=== PATIENT | female | born 1950 | race African-American/Black ===

== ENCOUNTER 2019-06-02 10:33 | Observation (INO) | payer MEDICARE ==
[~2019-06-02] VITALS: Ht 170.2 cm; Wt 76.2 kg
--- NOTE | 2019-06-02 11:57 | NUR ---
re draw done
[2019-06-02 12:04] LABS: BASOPHILS % 0.5 % (0.0-1.0); EOSINOPHILS # (AUTO) 0.1 (0.0-0.4); EOSINOPHILS % 1.5 % (0.0-6.0); HEMATOCRIT 31.4 % (34.2-44.1); HEMOGLOBIN 10.5 g/dL (12.0-16.0); LYMPHOCYTES # (AUTO) 1.7 (1.0-3.2); LYMPHOCYTES % 41.8 % (18.0-39.1); MEAN CORPUSCULAR HGB CONC 33.4 g/dL (31-35); MEAN CORPUSCULAR VOLUME 98.7 fL (81-99); MONOCYTES # (AUTO) 0.4 (0.2-0.8); MONOCYTES % 10.1 % (4.4-11.3); NEUTROPHILS # (AUTO) 1.9 (2.1-6.9); NEUTROPHILS % 46.1 % (38.7-80.0); PLATELET COUNT 75 x10e3/uL (140-360); RED BLOOD COUNT 3.18 x10e6/uL (3.6-5.1); RED CELL DISTRIBUTION WIDTH 14.8 % (11.7-14.4)
[2019-06-02 12:23] LABS: ALANINE AMINOTRANSFERASE 20 IU/L (0-55); ALBUMIN 1.4 g/dL (3.5-5.0); ALBUMIN/GLOBULIN RATIO 0.2 (0.8-2.0); ALKALINE PHOSPHATASE 88 IU/L (40-150); ANION GAP 7.1 mmol/L (8-16); BLOOD UREA NITROGEN 14 mg/dL (7-26); BUN/CREATININE RATIO 14 (6-25); CALCIUM 8.2 mg/dL (8.4-10.2); CARBON DIOXIDE 28 mmol/L (22-29); CHLORIDE 105 mmol/L (98-107); CREATININE, SERUM 1.02 mg/dL (0.57-1.11); EST GLOMERULAR FILTRATION RATE > 60 ML/MIN (60-); GLUCOSE 270 mg/dL (74-118); POTASSIUM 3.1 mmol/L (3.5-5.1); SODIUM 137 mmol/L (136-145)
[2019-06-02 12:37] LABS: BILIRUBIN,URINE NEGATIVE (NEGATIVE); CLARITY,URINE SL CLOUDY (CLEAR); COLOR,URINE YELLOW (YELLOW); KETONES,URINE NEGATIVE (NEGATIVE); LEUKOCYTE ESTERASE ,URINE NEGATIVE (NEGATIVE); NITRITE,URINE NEGATIVE (NEGATIVE); PROTEIN,URINE DIPSTICK 3+ (NEGATIVE); URINE UROBILINOGEN 1 mg/dL (0.2 - 1)
[2019-06-02 12:59] LABS: BACTERIA,URINE FEW /HPF; EPITHELIAL CELLS,URINE FEW /LPF; RBC,URINE 0-5 /HPF (0-5); WBC,URINE (MAN) >50 /HPF (0-5)
--- NOTE | 2019-06-02 13:11 | NUR ---
called radiology and spoke with nikita in rad regarding ct scan eta
--- NOTE | 2019-06-02 14:40 | Diagnostic Imaging Report ---
EXAM: CT Abdomen and Pelvis WITHOUT and WITH intravenous contrast - liver mass protocol INDICATION: Abdominal pain, liver mass COMPARISON: Report from CT abdomen and pelvis of 04/08/2017 (images not available for comparison) TECHNIQUE: Abdomen and pelvis were scanned utilizing a multidetector helical scanner from the lung base to the pubic symphysis before and after administration of IV contrast. Coronal and sagittal reformations were obtained. Liver mass protocol was used. Scan was performed prior to contrast administration and during arterial, portal venous and delayed venous phases. IV CONTRAST: 100 mL of Isovue 370 ORAL CONTRAST: Water COMPLICATIONS: None RADIATION DOSE: Total DLP: 1466.5 mGy*cm Dose modulation, iterative reconstruction, and/or weight based adjustment of the mA/kV was utilized to reduce the radiation dose to as low as reasonably achievable. FINDINGS: LOWER THORAX: Bibasilar dependent subsegmental atelectasis. HEPATOBILIARY: Nodular liver surface contour consistent with hepatic cirrhosis. There are numerous masses throughout the right and left liver, all of which demonstrate avid arterial enhancement and venous washout, consistent with multifocal hepatocellular carcinoma. The largest of these masses measure 4.0 x 3.4 cm in segment 5 (series 3 image 1:15) and a conglomeration of masses in segment 5 measuring up to 5.5 cm (series 3 image 118) the largest lesion on the left measures up to 2.0 cm in segment 2 (series 3 image 27). The portal system remains patent. There are prominent portosystemic varices in the upper abdomen, consistent with portal hypertension. No significant intrahepatic biliary ductal dilation. There is cholelithiasis without CT evidence of cholecystitis. SPLEEN: No splenomegaly. PANCREAS: No focal masses or ductal dilatation. ADRENALS: No adrenal nodules. KIDNEYS/URETERS: No hydronephrosis, stones, or solid mass lesions. PELVIC ORGANS/BLADDER: Status post hysterectomy. PERITONEUM / RETROPERITONEUM: Small volume abdominal ascites. No free air. Diffuse mesenteric edema. LYMPH NODES: No lymphadenopathy. VESSELS: Diffuse atherosclerotic calcifications of the nonaneurysmal abdominal aorta and major branches. GI TRACT: Severe sigmoid diverticulosis without CT evidence of diverticulitis. BONES AND SOFT TISSUES: Diffuse anasarca. No acute osseous injury. No suspicious lytic or blastic lesions. IMPRESSION: Hepatic cirrhosis with numerous masses throughout the right greater than left liver demonstrating arterial enhancement and venous washout consistent with multifocal hepatocellular carcinoma. Prominent portosystemic varices and small volume of abdominal ascites consistent with portal hypertension. Diffuse mesenteric edema and diffuse anasarca. Cholelithiasis without CT evidence of cholecystitis. The above findings were discussed with Dr. Abbott on 06/02/2019 2:17 PM, who responded indicating that the communication was understood. Signed by: Srinivas Asher MD on 06/02/2019 2:37 PM
[2019-06-02] MEDS ORDERED: ONDANSETRON HCL INJ 2MG/ML 2ML 2 MG/ML VIAL IV PRN (15:30)
[2019-06-02] MEDS ORDERED: MORPHINE SULFATE 2 MG/ML SYR 1ML IV PRN (15:30)
[2019-06-02] MEDS ORDERED: DEXTROSE 50% SYRINGE 50 ML IV PRN (15:30)
[2019-06-02] MEDS ORDERED: MORPHINE SULFATE INJ 4 MG/ML INJ 1ML IV PRN (15:45)
[2019-06-02] MEDS ORDERED: IOPAMIDOL 370 MG/ML 200 ML INFUS..BTL INJ ONE (15:48)
[2019-06-02] MEDS ORDERED: SODIUM CHLORIDE 0.9% 50ML 50 ML ONE (15:48)
[2019-06-02] MEDS ORDERED: FAMOTIDINE 20 MG/2 ML VIAL IV SCH (17:00)
[2019-06-02 17:56] VITALS: BP 179/81
[2019-06-02 18:06] VITALS: BP 179/81
[2019-06-02 18:11] VITALS: BP 179/81
[2019-06-02] MEDS: POTASSIUM CHLORIDE 20 MEQ TAB CR PO SCH (19:03)
--- NOTE | 2019-06-02 20:16 | NUR ---
CALLED DR. BUTLER AT THIS TIME, BUT WENT STRAIGHT TO [employer]. LEFT A MESSAGED REGARDING BLOOD GLUCOSE AND BP. AWAITING CALL BACK
[2019-06-02 20:30] VITALS: BP 178/97
--- NOTE | 2019-06-02 20:33 | NUR ---
CALLED AGAIN AT THIS TIME. AWAITING CALL BACK
--- NOTE | 2019-06-02 20:43 | NUR ---
SPOKE TO DR. BUTLER AT THIS TIME. REGARDING BLOOD GLUCOSE, BP AND HR. NEW ORDERS RECEIVED. SEE EMAR FOR LIST OF ORDERS. LEVEMIR ORDER SUBSTITUTED WITH LANTUS PER PHARMACY
[2019-06-02] MEDS ORDERED: ENALAPRILAT IV INJ 1.25 MG/ML VIAL IV PRN (21:00)
[2019-06-02] MEDS ORDERED: INSULIN GLARGINE 100 UNITS/ML VIAL SQ ONE (21:15)
[2019-06-02] MEDS ORDERED: METOPROLOL TARTRATE 50 MG TAB PO ONE (21:30)
[2019-06-02] MEDS: INSULIN REGULAR, HUMAN 100 UNIT/1 ML 3ML VIAL SQ SCH (21:40)
[2019-06-02 23:44] VITALS: BP 154/68
--- NOTE | 2019-06-03 02:30 | History and Physical ---
THI IS GI CONSULT, NOT H & P CONSULTING PHYSICIAN: Ruben Peng MD. REASON FOR CONSULT: Multiple liver masses in a cirrhotic liver. HISTORY OF PRESENTING ILLNESS: A 68-year-old Afro-Gu[place]ian female, who is very confused. I cannot get any history from the patient. The patient lives with her in [place]. She was noted to be developing confusion. Therefore, she was brought into emergency room by her . She sees only primary care doctor, what patient tells me is that her primary doctor is Dr. Tompkins. She is not sure if she has a known history of liver cirrhosis. CT scan of the abdomen and pelvis done in the emergency room showed multiple liver masses in a cirrhotic liver, typical arterial enhancement and venous washout is diagnostic of multi focal hepatocellular carcinoma. She was also noted to have a small volume of ascites. GI is being consulted for further evaluation and recommendation. REVIEW OF SYSTEMS: Unobtainable, patient is pleasantly confused. PAST MEDICAL HISTORY: Liver cirrhosis, cause of the liver cirrhosis is not known. PAST SURGICAL HISTORY: Unknown. FAMILY HISTORY: Unknown, not contributory. SOCIAL HISTORY: and lives with her . No smoking, alcohol, or any illicit drug use. HOME MEDICATIONS: None, not listed anything in the chart. INPATIENT MEDICATIONS: Reviewed as per MAR. She is getting dextrose IV fluid as needed, famotidine 20 mg twice daily, morphine 4 mg IV q.4 hours p.r.n., Zofran 4 mg IV q.4 hours p.r.n. ALLERGIES: OXYCODONE. PHYSICAL EXAMINATION: VITAL SIGNS: Temperature 97.1, pulse ranging from 112 to 113, respiration 21 to 18, blood pressure 178/97, oxygen saturation 100% on room air. GENERAL: Confused. HEENT: Oral mucosa is moist. Slightly icteric sclerae. CVS: S1 and S2. Regular. LUNGS: Bilaterally grossly clear. ABDOMEN: Soft. Palpable tenderness in epigastric right upper quadrant without any rebound, rigidity, or guarding, shifting dullness is present. Bowel sounds present. No other masses or hernia. EXTREMITIES: 2+ pitting bilateral leg edema. LABORATORY DATA: Sodium 137, potassium 3.1, chloride 105, bicarb 28, BUN 14, creatinine 1.02, glucose 270. Liver enzymes showed a total bilirubin 1.0, AST 40, ALT 20, alkaline phosphatase 88. WBC 4.07, hemoglobin 10.5, hematocrit 31.4, MCV 98.7, and platelet count 75. Urinalysis showed WBC more than 50 per high-power field. CT of the abdomen and pelvis with and without contrast showed cirrhotic liver, numerous masses throughout the liver, more on the right than the left, demonstrating arterial enhancement and venous washout consistent with multifocal hepatocellular carcinoma. Prominent portosystemic varices and small volume of abdominal ascites consistent with portal hypertension. Diffuse mesenteric edema and diffuse anasarca. Cholelithiasis without CT evidence of cholecystitis. IMPRESSION: 1. Multifocal hepatocellular carcinoma. 2. The patient may be having occult hepatic encephalopathy. 3. Urinary tract infection based upon urinalysis. PLAN: Given multifocal hepatocellular carcinoma, there is no choice and it is quite advanced, therefore her prognosis is very poor. Consider hospice. Oncology consult. She may be a candidate of Nexavar (sorafenib), check urine culture. Treat UTI. Lactulose to ensure one or two bowel movement daily. Low-salt diet. Zackery Martínez MD SA/RIO /[id number] WAYNE
[2019-06-03 04:00] VITALS: BP 149/66
[2019-06-03 05:40] LABS: BASOPHILS % 0.5 % (0.0-1.0); EOSINOPHILS # (AUTO) 0.1 (0.0-0.4); EOSINOPHILS % 1.7 % (0.0-6.0); HEMATOCRIT 27.8 % (34.2-44.1); HEMOGLOBIN 9.1 g/dL (12.0-16.0); LYMPHOCYTES # (AUTO) 1.2 (1.0-3.2); LYMPHOCYTES % 30.3 % (18.0-39.1); MEAN CORPUSCULAR HEMOGLOBIN 32.5 pg (28-32); MEAN CORPUSCULAR HGB CONC 32.7 g/dL (31-35); MEAN CORPUSCULAR VOLUME 99.3 fL (81-99); MONOCYTES # (AUTO) 0.5 (0.2-0.8); MONOCYTES % 13.2 % (4.4-11.3); NEUTROPHILS # (AUTO) 2.2 (2.1-6.9); NEUTROPHILS % 54.1 % (38.7-80.0); PLATELET COUNT 66 x10e3/uL (140-360); RED CELL DISTRIBUTION WIDTH 14.9 % (11.7-14.4)
[2019-06-03 06:10] LABS: ALANINE AMINOTRANSFERASE 17 IU/L (0-55); ALBUMIN 1.1 g/dL (3.5-5.0); ALBUMIN/GLOBULIN RATIO 0.2 (0.8-2.0); ALKALINE PHOSPHATASE 73 IU/L (40-150); ANION GAP 8.3 mmol/L (8-16); BLOOD UREA NITROGEN 17 mg/dL (7-26); BUN/CREATININE RATIO 16 (6-25); CALCIUM 7.9 mg/dL (8.4-10.2); CARBON DIOXIDE 24 mmol/L (22-29); CHLORIDE 109 mmol/L (98-107); CREATININE, SERUM 1.04 mg/dL (0.57-1.11); EST GLOMERULAR FILTRATION RATE > 60 ML/MIN (60-); GLUCOSE 233 mg/dL (74-118); POTASSIUM 3.3 mmol/L (3.5-5.1); SODIUM 138 mmol/L (136-145)
--- NOTE | 2019-06-03 06:22 | NUR ---
Medical Consultation Requesting physician: Dr Martínez Reason for consult: liver masses HPI: 68yoF, with hx cirrhosis, now with worsened abdominal pain. PMH: hepatic cirrhosis, ascites, portal HTN PSHX; unknown allergies; see emr FH/SH; ; meds; see MAR ROS; no f/c/s/N/V/D/FRANCOIS/cp/sob/dizziness v/s revd PE tired appearing atraumatic ns1s2 mod bs soft nd; minimal tenderness of abdomen no e/t skin dry flat affect alert/ SALAZAR labs/meds; revd A/P: 68yoF Hepatic cirrhosis Likely Hepatocellular carcinoma Ascites portal hypertension Cholelithiasis Pancytopenia Hypokalemia HTN PLAN resume home meds pt wants to f/u outpt with GI for further care No sob; currently asymptomatic; abdominal pain resolved Prop: scd Dispo: d/c home; f/u closely with GI; considerations for hospice care. Raul Talamantes MD, PhD.
--- NOTE | 2019-06-03 06:40 | NUR ---
rounded with rn night nurse, patient aware of change and in no distress at this time. call zuñiga within reach and bed in lowest position.
[2019-06-03] MEDS ORDERED: FAMOTIDINE 20 MG TAB PO SCH (07:30)
[2019-06-03 08:00] VITALS: BP 155/64
[2019-06-03] MEDS: INSULIN REGULAR, HUMAN 100 UNIT/1 ML 3ML VIAL SQ SCH (08:00)
[2019-06-03] MEDS: POTASSIUM CHLORIDE 20 MEQ TAB CR PO SCH (08:00)
[2019-06-03] MEDS ORDERED: LOPRESSOR25 MG PO (08:02)
[2019-06-03] MEDS ORDERED: FAMOTIDINE20 MG PO (08:02)
[2019-06-03] MEDS ORDERED: ULTRAM50 MG PO (08:02)
[2019-06-03] MEDS ORDERED: LACTULOSE20 GM/30 M PO (08:02)
[2019-06-03] MEDS ORDERED: KLOR-CON M2020 MEQ PO (08:02)
[2019-06-03 08:20] VITALS: BP 155/64
[2019-06-03] MEDS ORDERED: LACTULOSE SYRUP 20 GM/30 ML UDC PO NR (08:30)
[2019-06-03 08:52] LABS: CHOL/HDL RATIO 5.9 (3.0-3.6)
[2019-06-03] MEDS ORDERED: METOPROLOL TARTRATE 25 MG TAB PO SCH (09:00)
--- NOTE | 2019-06-03 09:35 | NUR ---
patient alert and oriented with at bedside. discharge instructions given at this time, both verbalized understanding. IV discontinued, catheter in tact and small dressing applied. patient to be wheeled out to personal auto for to drive home.
--- NOTE | 2019-06-05 07:08 | NUR ---
D/C summary Principal dx: Likely Hepatocellular carcinoma Ascites Secondary dx: Hepatic cirrhosis portal hypertension Cholelithiasis Pancytopenia Hypokalemia HTN PLAN resume home meds pt wants to f/u outpt with GI for further care No sob; currently asymptomatic; abdominal pain resolved Prop: scd Dispo: d/c home; f/u closely with GI; considerations for hospice care. d/c home stable f/u pcp 1 week and GI 1 week d/c>35mins Raul Talamantes MD, PhD.
== END 2019-06-03 09:41 | disposition home or self-care (01) ==
LOC: ER 10:33 → INTOOBSV 15:19 → ERHOLD 15:19 → MED/SURG 17:08
PROVIDERS: ADMIT Internal Medicine; ATTEND Internal Medicine
DX: K74.60 Unspecified cirrhosis of liver (principal); R18.8 Other ascites; R10.9 Unspecified abdominal pain; I10 Essential (primary) hypertension; Z82.49 Family history of ischemic heart disease and other diseases of the circulatory system; C22.9 Malignant neoplasm of liver, not specified as primary or secondary; K76.6 Portal hypertension; D64.9 Anemia, unspecified; D69.6 Thrombocytopenia, unspecified; K80.20 Calculus of gallbladder without cholecystitis without obstruction; D61.818 Other pancytopenia; E87.6 Hypokalemia
CPT/HCPCS: 36415 ×2; 74178; 80053 ×2; 80061; 81001; 82140; 82948; 83036; 84443; 85025 ×2; 87086; 93005; 96372; 99284; G0378 ×2; J1815; J1817; Q9967

== ENCOUNTER 2019-06-05 04:08 | Emergency (ER) | payer MEDICARE ==
[~2019-06-05] VITALS: Ht 170.2 cm; Wt 76.2 kg
[~2019-06-05 04:08] MED LIST: FAMOTIDINE20 MG PO; KLOR-CON M2020 MEQ PO; LACTULOSE20 GM/30 M PO; LOPRESSOR25 MG PO; ULTRAM50 MG PO
--- OUTSIDE RECORDS SUMMARY | 2019-06-05 04:11 | XMS REPORT ---
Author Author [facility] Address Unknown Phone Unavailable Care Team Providers Care Banking Attorney Name Role Phone Carline CHAN Unavailable Unavailable Payers Payer Name Policy Type Policy Number Effective Date Expiration Date Problems This patient has no known problems. Allergies, Adverse Reactions, Alerts Allergy Name Allergy Type Status Severity Reaction(s) Onset Date Inactive Date Treating Clinician Comments oxycodone DA Active U 2017-06-11 00:00:00 aspirin DA Active U 2017-06-11 00:00:00 Medications This patient has no known medications. Results Test Description Test Time Test Comments Text Results Atomic Results Result Comments CT ABDOMEN/PELVIS WOW 2019-06-02 14:17:00 [place] [address] Patient Name: ALFREDITO MASTERSON MR #: [id number] : 1950 Age/Sex: 68/F Req #: [id number] Adm Physician: Ordered by: CHANEL CHAN MD Report #: [id number] Location: ER Room/Bed: Procedure: [id number] CT/CT ABDOMEN/PELVIS WOW Exam Date: 06/02/19 Exam Time: 1350 REPORT STATUS: Signed EXAM: CT Abdomen and Pelvis WITHOUT and WITH intraven ous contrast - liver mass protocol INDICATION: Abdominal pain, liver mass COMPARISON: Report from CT abdomen and pelvis of 04/08/2017 (images not available for comparison) TECHNIQUE: Abdomen and pelvis were scanned utilizing a multidetector helical scanner from the lung base to the pubic symphysis before and after administration of IV contrast. Coronal and sagittal reformations were obtained. Liver mass protocol was used. Scan was performed prior to contrast administration and during arterial, portal venous and delayed venous phases. IV CONTRAST: 100 mL of Isovue 370 ORAL CONTRAST: Water COMPLICATIONS: None RADIATION DOSE: Total DLP: 1466.5 mGy*cm Dose modulation, iterative reconstruction, and/or weight based adjustment of the mA/kV was utilized to reduce the radiation dose to as low as reasonably achievable. FINDINGS: LOWER THORAX: Bibasilar dependent subsegmental atelectasis. HEPATOBILIARY: Nodular liver surface contour consistent with hepatic cirrhosis. There are numerous masses throughout the right and left liver, all of which demonstrate avid arterial enhancement and venous washout, consistent with multifocal hepatocellular carcinoma. The largest of these masses measure 4.0 x 3.4 cm in segment 5 (series 3 image 1:15) and a conglomeration of masses in segment 5 measuring up to 5.5 cm (series 3 image 118) the largest lesion on the left measures up to 2.0 cm in segment 2 (series 3 image 27). The portal system remains patent. There are prominent portosystemic varices in the upper abdomen, consistent with portal hypertension. No significant intrahepatic biliary ductal dilation. There is cholelithiasis without CT evidence of cholecystitis. SPLEEN: No splenomegaly. PANCREAS: No focal masses or ductal dilatation. ADRENALS: No adrenal nodules. KIDNEYS/URETERS: No hydronephrosis, stones, or solid mass lesions. PELVIC ORGANS/BLADDER: Status post hysterectomy. VAN TONEUM / RETROPERITONEUM: Small volume abdominal ascites. No free air. Diffuse mesenteric edema. LYMPH NODES: No lymphadenopathy. VESSELS: Diffuse atherosclerotic calcifications of the nonaneurysmal abdominal aorta and major branches. GI TRACT: Severe sigmoid diverticulosis without CT evidence of diverticulitis. BONES AND SOFT TISSUES: Diffuse anasarca. No acute osseous injury. No suspicious lytic or blastic lesions. IMPRESSION: Hepatic cirrhosis with numerous masses throughout the right greater than left liver demonstrating arterial enhancement and venous washout consistent with multifocal hepatocellular carcinoma. Prominent portosystemic varices and small volume of abdominal ascites consistent with portal hypertension. Diffuse mesenteric edema and diffuse anasarca. Cholelithiasis without CT evidence of cholecystitis. The above findings were discussed with Dr. Chan on 06/02/2019 2:17 PM, who responded indicating that the communication was understood. Signed by: Flaco Block MD on 06/02/2019 2:37 PM Dictated By: FLACO BLOCK MD 143 Transcribed By: VIRGIL on 06/02/19 1437 COPY TO: CHANEL CHAN MD - US ABDOMEN COMPLETE 2019-06-01 08:54:00 Name: ALFREDITO MASTERSON [facility] [place] : 1950 Age/S: 68 / F [address] [facility] Unit #: [id number] Loc: [place] [address] Phys: Archie Tompkins DO Acct: [id number] Dis Date: Status: REG CLI PHONE #: [phone] Exam Date: 06/01/2019824 FAX #: [phone] Reason: R10.84 EXAMS: CPT CODE: [id number] US ABDOMEN COMPLETE 39546 REASON FOR EXAM: R10.84 EXAM ORDER DATE: 06/01/2019 7:26 AM Attending MLatonia: Archie Tompkins DO PROCEDURE: - US ABDOMEN COMPLETE Technique: Grayscale and color Doppler images of the abdomen. Comparison study: CT abdomen and pelvis June 11, 2017 is available for review FINDINGS: Aorta and IVC: Atherosclerotic plaques are scattered throughout the visualized abdominal aorta. IVC appears to be within normal limits. Liver: Size: 15.9 cm craniocaudally Parenchyma and contour: Nodular contour with coarsened echotexture. Cysts and/or masses: Hypoechoic mass in the right lobe measuring 4.4 x 3.6 x 3.9 cm in size. A second heterogenous appearing mass is also seen in the right lobe measuring 4.2 x 3.2 x 4.4 cm in size. Additional smaller hypoechoic lesion s are scattered throughout the liver. Intrahepatic bile ducts: No intrahepatic biliary ductal dilation Common bile duct: 7.3 mm in diameter. No echogenic filling defects in visualized duct. Gallbladder: Stones/sludge: There are a few intraluminal stones present. Wall: 10.0 mm in thickness. No discontinuity. No polyps. No pericholecystic fluid. No hyperemia. Sonographic Morales's sign: Positive Portal vein: Portal vein caliber is within normal limits. Portal vein is patent with hepatopetal flow. Pancreas: Incompletely visualized. However the visualized portions are grossly within normal limits. Right kidney: PAGE 1 Signed Report (CONTINUED) Name: ALFREDITO MASTERSON [facility] [place] : 1950 Age/S: 68 / F [address] [facility] Unit #: [id number] [place] [address] Phys: Archie Tompkins DO Acct: [id number] Dis Date: Status: REG CLI PHONE #: [phone] Exam Date: 06/01/2019824 FAX #: [phone] Reason: R10.84 EXAMS: CPT CODE: [id number] US ABDOMEN COMPLETE 63679 <Continued> parenchyma echogenicity: Normal echogenicity size: 11.4 x 5.2 x 5.8 cm stones: none cysts/masses: none hydronephrosis: none Left kidney: parenchyma echogenicity: Normal echogenicity size: 11.0 x 4.8 x 4.8 cm stones: none cysts/masses: none hydronephrosis: none Spleen: size: 10.3 x 5.3 x 4.4 cm cysts/masses: Parenchyma is sonographically unremarkable. Ascites/pleural effusions: Moderate ascites IMPRESSION: Findings consistent with acute cholecystitis. Cirrhotic liver with multiple hypoechoic masses. These findings are suspicious for malignancy and should be further evaluated with a nonemergent contrast-enhanced CT or MRI utilizing a liver protocol. at 0854 Reported and signed by: Corby Chin MD CC: Archie Tompkins Technologist: RAINE CREWS RT(R),SASHA Trnscb Date/Time: 06/01/2019 (54) [id number] Orig Print D/T: S: 06/01/2019 (0857) Probe: PAGE 2 Signed Report
--- NOTE | 2019-06-05 04:31 | NUR ---
STRAIGHT CATH DONE, SPECIMEN TO LAB
[2019-06-05 04:32] LABS: BASOPHILS % 0.3 % (0.0-1.0); EOSINOPHILS % 0.8 % (0.0-6.0); HEMATOCRIT 31.1 % (34.2-44.1); HEMOGLOBIN 10.5 g/dL (12.0-16.0); LYMPHOCYTES # (AUTO) 1.1 (1.0-3.2); LYMPHOCYTES % 27.8 % (18.0-39.1); MEAN CORPUSCULAR HGB CONC 33.8 g/dL (31-35); MEAN CORPUSCULAR VOLUME 97.8 fL (81-99); MONOCYTES # (AUTO) 0.4 (0.2-0.8); MONOCYTES % 10.6 % (4.4-11.3); NEUTROPHILS # (AUTO) 2.3 (2.1-6.9); PLATELET COUNT 71 x10e3/uL (140-360); RED BLOOD COUNT 3.18 x10e6/uL (3.6-5.1); RED CELL DISTRIBUTION WIDTH 14.8 % (11.7-14.4)
[2019-06-05 04:35] LABS: BILIRUBIN,URINE NEGATIVE (NEGATIVE); CLARITY,URINE CLEAR (CLEAR); COLOR,URINE YELLOW (YELLOW); KETONES,URINE NEGATIVE (NEGATIVE); LEUKOCYTE ESTERASE ,URINE NEGATIVE (NEGATIVE); NITRITE,URINE NEGATIVE (NEGATIVE); URINE UROBILINOGEN 0.2 mg/dL (0.2 - 1)
[2019-06-05 04:39] LABS: PROTEIN,URINE DIPSTICK 3+ (NEGATIVE)
[2019-06-05 04:49] LABS: ALBUMIN 1.3 g/dL (3.5-5.0); ALBUMIN/GLOBULIN RATIO 0.2 (0.8-2.0); ANION GAP 8.1 mmol/L (8-16); CREATININE, SERUM 1.31 mg/dL (0.57-1.11); POTASSIUM 3.1 mmol/L (3.5-5.1)
[2019-06-05 04:55] LABS: CREATINE KINASE MB 2.1 ng/mL (0-5.0)
[2019-06-05] MEDS ORDERED: ONDANSETRON HCL INJ 2MG/ML 2ML 2 MG/ML VIAL IV PRN (05:00)
[2019-06-05] MEDS ORDERED: ASPIRIN 81 MG CHEW TAB PO ONE (05:00)
[2019-06-05] MEDS ORDERED: SODIUM CHLORIDE FLUSH 10 ML SYR INJ PRN (05:00)
[2019-06-05] MEDS ORDERED: MORPHINE SULFATE 2 MG/ML SYR 1ML IV PRN (05:00)
[2019-06-05 05:12] LABS: BACTERIA,URINE RARE /HPF; EPITHELIAL CELLS,URINE FEW /LPF
[2019-06-05] MEDS ORDERED: ATORVASTATIN CA20 MG PO (05:14)
[2019-06-05] MEDS ORDERED: METFORMIN HCL1000 MG PO (05:14)
[2019-06-05] MEDS ORDERED: POTASSIUM CHLO20 ME1 PO (05:29)
[2019-06-05] MEDS ORDERED: METOPROLOL TART25 MG PO (05:29)
[2019-06-05] MEDS ORDERED: ASPIR 8181 MG PO (05:29)
[2019-06-05] MEDS ORDERED: METFORMIN HCL500 MG PO (05:29)
[2019-06-05] MEDS ORDERED: LASIX20 MG PO (05:29)
[2019-06-05] MEDS ORDERED: DIVALPROEX SOD250 M1 PO (05:29)
[2019-06-05 06:17] LABS: PROTHROMBIN TIME 13.7 seconds (11.9-14.5)
[2019-06-05 08:07] VITALS: BP 133/75
--- NOTE | 2019-06-05 08:10 | NUR ---
d/c home per dr. ulloa per dr. hernandez
== END 2019-06-05 08:31 | disposition home or self-care (01) ==
LOC: ER 04:08 → ERHOLD 05:08 → UNDOADMOB 05:08
DX: R10.33 Periumbilical pain (principal); R10.84 Generalized abdominal pain; R07.89 Other chest pain; K70.31 Alcoholic cirrhosis of liver with ascites
CPT/HCPCS: 36415; 80053; 81001; 82140; 82550; 82553; 83690; 83880; 84484; 85025; 85610; 85730; 93005; 99284; C1729

== ENCOUNTER 2019-07-15 14:18 | Emergency (ER) | payer MEDICARE ==
[~2019-07-15] VITALS: Ht 170.2 cm; Wt 76.2 kg
[~2019-07-15 14:18] MED LIST changes: +ASPIR 8181 MG PO; +ATORVASTATIN CA20 MG PO; +CEFUROXIME250 MG PO; +DIVALPROEX SOD250 M1 PO; +LASIX20 MG PO; +METFORMIN HCL1000 MG PO; +METFORMIN HCL500 MG PO; +METOPROLOL TART25 MG PO; +POTASSIUM CHLO20 ME1 PO; +ULTRAM 50MG50 MG
[2019-07-15] MEDS ORDERED: ONDANSETRON HCL 4 MG ORAL DISINTEGRATING TAB PO NR (15:00)
--- NOTE | 2019-07-15 15:05 | NUR ---
[facility]
== END 2019-07-15 15:45 | disposition home or self-care (01) ==
LOC: ER 14:18
DX: R10.84 Generalized abdominal pain (principal); R11.2 Nausea with vomiting, unspecified; C22.9 Malignant neoplasm of liver, not specified as primary or secondary; I10 Essential (primary) hypertension; E11.9 Type 2 diabetes mellitus without complications; I25.10 Atherosclerotic heart disease of native coronary artery without angina pectoris; E78.5 Hyperlipidemia, unspecified
CPT/HCPCS: 99284; Q0162

== ENCOUNTER 2019-10-07 11:04 | Inpatient (IN) | payer MEDICARE ==
[~2019-10-07] VITALS: Ht 172.7 cm; Wt 75.3 kg
[2019-10-07 11:48] LABS: CLARITY,URINE SL CLOUDY (CLEAR); COLOR,URINE YELLOW (YELLOW); LEUKOCYTE ESTERASE ,URINE NEGATIVE (NEGATIVE); NITRITE,URINE NEGATIVE (NEGATIVE)
--- NOTE | 2019-10-07 11:48 | NUR ---
H&P cc: confusion; failure to thrive HPI: 68yoF, with hx cirrhosis, now with worsened status and difficulty to take care of, per ; Husbands wants DNR and to procede to hospice care. PMH: hepatic cirrhosis, ascites, portal HTN, hepatic encephalopathy, likely hepatocellular carcinoma PSHX; unknown allergies; see emr FH/SH; ; meds; see MAR ROS; unobtainable v/s revd PE tired appearing atraumatic ns1s2 mod bs soft ; large abdomen; no real tenderness; abdominal scar trace leg edema skin dry flat affect alert/ SALAZAR labs/meds; revd A/P: 68yoF Anasarca- diuretics Hepatic cirrhosis- lactulose Likely Hepatocellular carcinoma- supportive care Ascites- diuretics portal hypertension- supporive Cholelithiasis Hypernatremia - f/u with diuretics KARAN- f/u with diuretics UTI- keflex Prop: REBECA jorge; evelio Dispo: hospice pauly Talamantes MD, PhD.
[2019-10-07 11:49] LABS: BASOPHILS % 0.1 % (0.0-1.0); BILIRUBIN,URINE MODERATE (NEGATIVE); HEMATOCRIT 24.1 % (34.2-44.1); HEMOGLOBIN 7.5 g/dL (12.0-16.0); KETONES,URINE NEGATIVE (NEGATIVE); LYMPHOCYTES # (AUTO) 0.8 (1.0-3.2); MEAN CORPUSCULAR HEMOGLOBIN 32.5 pg (28-32); MEAN CORPUSCULAR HGB CONC 31.1 g/dL (31-35); MEAN CORPUSCULAR VOLUME 104.3 fL (81-99); MONOCYTES # (AUTO) 0.8 (0.2-0.8); MONOCYTES % 10.6 % (4.4-11.3); NEUTROPHILS # (AUTO) 5.9 (2.1-6.9); NEUTROPHILS % 77.8 % (38.7-80.0); PLATELET COUNT 54 x10e3/uL (140-360); PROTEIN,URINE DIPSTICK 3+ (NEGATIVE); RED BLOOD COUNT 2.31 x10e6/uL (3.6-5.1); RED CELL DISTRIBUTION WIDTH 19.3 % (11.7-14.4); URINE UROBILINOGEN 2 mg/dL (0.2 - 1)
[2019-10-07 12:09] LABS: INR 1.45; PROTHROMBIN TIME 18.6 seconds (11.9-14.5); RBC,URINE >50 /HPF (0-5)
[2019-10-07 12:10] LABS: AMORPHOUS SEDIMENT,URINE MODERATE (FEW); BACTERIA,URINE FEW /HPF; PARTIAL THROMBOPLASTIN TIME 35.7 seconds (23.8-35.5)
[2019-10-07 12:11] LABS: EPITHELIAL CELLS,URINE MODERATE /LPF
[2019-10-07 12:12] LABS: MUCUS,URINE FEW (RARE)
[2019-10-07 12:13] LABS: ALBUMIN 1.1 g/dL (3.5-5.0); ALBUMIN/GLOBULIN RATIO 0.2 (0.8-2.0); ANION GAP 19.9 mmol/L (8-16); CALCIUM 7.6 mg/dL (8.4-10.2); CREATININE, SERUM 2.12 mg/dL (0.57-1.11); MAGNESIUM 2.2 MG/DL (1.3-2.1); POTASSIUM 3.9 mmol/L (3.5-5.1)
[2019-10-07] MEDS ORDERED: SODIUM CHLORIDE 0.9% 500ML 500 ML IV ONE (12:30)
--- NOTE | 2019-10-07 12:52 | Diagnostic Imaging Report ---
Examination: Single AP view of the chest. COMPARISON: None. INDICATION: Sepsis, altered mental status DISCUSSION: Lines/tubes: None. Lungs: Left lower lung consolidation. Pleura: Probable left effusion. Heart and mediastinum: The heart and the mediastinum are unremarkable. Bones and soft tissues: No acute bony abnormalities. IMPRESSION: Left lower lung consolidation/atelectasis and pleural effusion Signed by: Dr. Stu Rashid M.D. on 10/07/2019 12:49 PM
--- NOTE | 2019-10-07 12:55 | Diagnostic Imaging Report ---
History:AMS, sepsis Comparison studies:None Technique: Axial images were obtained from the skull base to the vertex. Coronal and sagittal images reconstructed from the axial data. Intravenous contrast: None Dose modulation, iterative reconstruction, and/or weight based adjustment of the mA/kV was utilized to reduce the radiation dose to as low as reasonably achievable. Findings: Scalp/skull: No abnormalities. Extra-axial spaces: No masses. No fluid collections. Brain sulci: Mildly prominent. Ventricles: Mild compensatory dilatation. No hydrocephalus. Parenchyma: Subtle few hypodensities in the supratentorial white matter are small vessel ischemic changes. No masses, hemorrhage, acute or chronic cortical vascular insults. Sellar/suprasellar region: No abnormalities. Craniocervical junction: Patent foramen magnum. No Chiari one malformation. Incidental findings: Atherosclerotic calcifications in the carotid siphons . Impression: No acute abnormalities. Chronic findings: 1. Mild generalized volume loss. 2. Mild supratentorial white matter small vessel ischemic changes. Signed by: DR Tomas Cervantes M.D. on 10/07/2019 12:52 PM
--- NOTE | 2019-10-07 13:05 | Diagnostic Imaging Report ---
EXAMINATION: CT of the abdomen and pelvis without contrast. TECHNIQUE: Helical CT images of the abdomen and pelvis were performed from the lung bases to the lesser trochanters. No intravenous contrast was given per renal stone protocol. Coronal and sagittal reformatted images were obtained.Dose modulation, iterative reconstruction, and/or weight based adjustment of the mA/kV was utilized to reduce the radiation dose to as low as reasonably achievable. COMPARISON: None. CLINICAL HISTORY:Sepsis DISCUSSION: ABSENCE OF INTRAVENOUS CONTRAST DECREASES SENSITIVITY FOR DETECTION OF FOCAL LESIONS AND VASCULAR PATHOLOGY. ABDOMEN/PELVIS: LOWER THORAX: Left pleural effusion with adjacent atelectasis/consolidation. HEPATOBILIARY:Cirrhotic liver morphology. Cholelithiasis. SPLEEN: No splenomegaly. PANCREAS: No focal masses or ductal dilatation. ADRENALS: No adrenal nodules. KIDNEYS/URETERS: No hydronephrosis, stones, or solid mass lesions. PELVIC ORGANS/BLADDER: Hysterectomy. PERITONEUM/RETROPERITONEUM: Abdominal ascites. LYMPH NODES: No intra-abdominal,retroperitoneal, pelvic or inguinal lymphadenopathy. VESSELS: The celiac trunk,superior and inferior mesenteric and bilateral renal arteries are patent The portal, superior mesenteric and splenic veins are patent. GI TRACT: Colonic diverticulosis Limited evaluation for inflammatory change due to the patient's ascites. Generalized wall thickening due to hypoproteinemia. BONES AND SOFT TISSUES: No bony destructive lesions. No soft tissue abnormalities. IMPRESSION: Cirrhotic liver with large amount of ascites. Prior described hepatic mass not well visualized on noncontrast imaging. Colonic diverticulosis, limited evaluation for inflammatory change. Cholelithiasis. Soft tissue anasarca Left pleural effusion with adjacent atelectasis/consolidation Signed by: Dr. Stu Rashid M.D. on 10/07/2019 1:02 PM
[2019-10-07] MEDS ORDERED: PANTOPRAZOLE 40 MG 10ML VIAL IV STA (13:20)
[2019-10-07] MEDS: TRAMADOL HCL 50 MG TAB PO PRN (13:29)
[2019-10-07] MEDS: PIPERACILLIN/TAZO 2.25 GM 50 ML IV SCH ×2 (13:29→18:36)
[2019-10-07] MEDS ORDERED: ONDANSETRON HCL INJ 2MG/ML 2ML 2 MG/ML VIAL IV PRN (13:30)
[2019-10-07 13:32] LABS: CREATINE KINASE MB 2.5 ng/mL (0-5.0)
[2019-10-07] MEDS: LACTULOSE SYRUP 20 GM/30 ML UDC PO SCH ×3 (14:00→23:04)
[2019-10-07] MEDS ORDERED: PANTOPRAZOLE 40 MG 10ML VIAL IV NR (14:00)
--- NOTE | 2019-10-07 14:24 | NUR ---
report given to percy mcdonald on unit
--- NOTE | 2019-10-07 14:55 | NUR ---
Received order for SNF eval and hospice. SW clarified order with ER physician, pt needs hospice and placement as is not able to care for her at home. Pt appeared confused. BETTY met with , Franklin Felix- [phone], he agreed with hospice and wants her placed in a long term. was given choice for hospice, he agreed with [facility] hospice, choice letter signed and is placed in the chart. Elisa from [facility] was contacted, she came and met with the pt and , discussed hospice and placement in a long term. Elisa will assist pt with long term placement, agreed with [facility] long term, Elisa will follow up with [facility] on Wednesday and will follow up with .
[2019-10-07 15:20] VITALS: BP 156/71
--- NOTE | 2019-10-07 15:20 | NUR ---
PATIENT RECEIVED FROM ER PER STRETCHER. ALERT AND VERBALLY RESPONSIVE, DENIED PAIN AT THIS TIME. HAD A LARGE BLOODY STOOL, DIAPER CHANGED, SPECIMEN COLLECTED AND SENT TO THE LAB. SKIN WARM AND DRY TO TOUCH, RESPIRATION EVEN AND UNLABORED. ABDOMEN LARGE, ROUND AND DISTENDED. REPOSITIONED IN BED, C/O BEING HUNGRY, KITCHEN NOTIFIED AND SNACK OFFERED. BED IN LOWER POSITION AND LOCKED, CALL LIGHT AT REACH. INSTRUCTED TO CALL FOR ASSISTANCE NEEDED. BED ALARM ACTIVATED.
[2019-10-07 15:29] VITALS: BP 156/71
[2019-10-07] MEDS: DIVALPROEX SODIUM 250 MG TAB...DR PO SCH ×2 (15:58→20:37)
[2019-10-07] MEDS: FAMOTIDINE 20 MG TAB PO SCH (16:30)
[2019-10-07] MEDS: METOPROLOL TARTRATE 25 MG TAB PO SCH (17:27)
[2019-10-07 17:57] LABS: OCCULT BLOOD STOOL POSITIVE (NEGATIVE)
--- NOTE | 2019-10-07 18:40 | NUR ---
MD NOTIFIED OF PATIENT HAVING BLOODY STOOL, NO NEW ORDER RECEIVED.
--- NOTE | 2019-10-07 19:21 | NUR ---
RECEIVED REPORT FROM 7AM NURSE, ROUNDS DONE, PATIENT CONTINUE RESTING IN BED, CALL LIGHT IN REACH. WILL CONTINUE TO MONITOR.
[2019-10-07 20:00] VITALS: BP 159/75
[2019-10-07 20:31] VITALS: BP 156/71
[2019-10-07] MEDS: ATORVASTATIN 20 MG TAB PO SCH (20:37)
[2019-10-08] VITALS (7 sets, daily range): BP systolic 122–153; BP diastolic 57–68
[2019-10-08] MEDS: LACTULOSE SYRUP 20 GM/30 ML UDC PO SCH ×5 (05:47→20:11)
[2019-10-08] MEDS: PIPERACILLIN/TAZO 2.25 GM 50 ML IV SCH ×2 (05:47)
--- NOTE | 2019-10-08 07:11 | NUR ---
ROUNDS DONE, REPORT GIVEN TO 7AM NURSE, PATIENT REMAIN CONFUSE, CALL LIGHT REMAIN IN REACH.
--- NOTE | 2019-10-08 07:25 | NUR ---
PATIENT IS IN STABLE CONDITION WITH NO S/S OF RESPIRATORY DISTRESS. NO PAIN INDICATED. FLATUS PRESENT; DIAPER APPLIED. BED ALARM APPLIED. CALL LIGHT IS WITHIN REACH OF PATIENT- PATIENT INSTRUCTED TO CALL FOR ASSISTANCE NEEDED.
[2019-10-08] MEDS: DIVALPROEX SODIUM 250 MG TAB...DR PO SCH ×2 (08:12→20:04)
[2019-10-08] MEDS: FAMOTIDINE 20 MG TAB PO SCH (08:12)
[2019-10-08] MEDS: METOPROLOL TARTRATE 25 MG TAB PO SCH ×2 (08:12→16:05)
[2019-10-08] MEDS ORDERED: PANTOPRAZOLE 40 MG 10ML VIAL IV SCH (09:00)
--- NOTE | 2019-10-08 09:32 | NUR ---
IM- progress note O/N no events ROS; unobtainable v/s revd PE tired appearing atraumatic ns1s2 mod bs soft ; large abdomen; no real tenderness; abdominal scar trace leg edema skin dry flat affect alert/ SALAZAR labs/meds; revd A/P: 68yoF Anasarca- diuretics Hepatic cirrhosis- lactulose Likely Hepatocellular carcinoma- supportive care Ascites- diuretics portal hypertension- supporive Cholelithiasis Hypernatremia - f/u with diuretics KARAN- f/u with diuretics UTI- keflex Prop: REBECA jorge; evelio Dispo: hospice eval 10/08 supportive care; plans for SNF with hospice care; cancel vitals and SCD; keep comfortable until hospice starts; use ferrous sulfate; Raul Talamantes MD, PhD.
[2019-10-08] MEDS: FUROSEMIDE 20 MG TAB PO SCH ×2 (09:43→16:05)
[2019-10-08 09:57] LABS: BASOPHILS % 0.3 % (0.0-1.0); EOSINOPHILS # (AUTO) 0.1 (0.0-0.4); EOSINOPHILS % 0.8 % (0.0-6.0); LYMPHOCYTES # (AUTO) 1.9 (1.0-3.2); MEAN CORPUSCULAR HGB CONC 30.9 g/dL (31-35); MEAN CORPUSCULAR VOLUME 106.8 fL (81-99); MONOCYTES # (AUTO) 0.7 (0.2-0.8); MONOCYTES % 9.2 % (4.4-11.3); NEUTROPHILS # (AUTO) 5.1 (2.1-6.9); NEUTROPHILS % 65.3 % (38.7-80.0); PLATELET COUNT 56 x10e3/uL (140-360); RED BLOOD COUNT 1.91 x10e6/uL (3.6-5.1); RED CELL DISTRIBUTION WIDTH 19.8 % (11.7-14.4)
[2019-10-08 10:00] LABS: HEMATOCRIT 20.4 % (34.2-44.1); HEMOGLOBIN 6.3 g/dL (12.0-16.0)
--- NOTE | 2019-10-08 10:02 | NUR ---
PATIENT HAD A BOWEL MOVEMENT- BLOODY STOOL NOTED. PATIENT CHANGED AND REPOSITION. REBECA HOSE APPLIED. AIR PUMP ATTACHED TO BED.
[2019-10-08 10:30] LABS: ALBUMIN 0.9 g/dL (3.5-5.0); ALBUMIN/GLOBULIN RATIO 0.1 (0.8-2.0); ANION GAP 14.9 mmol/L (8-16); CALCIUM 7.4 mg/dL (8.4-10.2); CREATININE, SERUM 2.04 mg/dL (0.57-1.11); POTASSIUM 3.9 mmol/L (3.5-5.1)
--- NOTE | 2019-10-08 11:42 | NUR ---
CALLED AND SPOKE WITH REGARDING PATIENT'S HGB OF 6.3- DR. NUÑEZ IS AWARE OF THE CURRENT HGB OF 6.3 AND AND HCT OF 20.4- NO NEW ORDER RECEIVED. DR. NUÑEZ STATED PATIENT IS DNR AND IS TO RECEIVE COMFORT CARE. DR. NUÑEZ STATED NO IV'S , NO VITAL SIGNS, NO REBECA HOSE, PATIENT IS ONLY TO RECEIVE ORAL MEDICATIONS, AND THERE SHOULD BE A CASE MANAGEMENT ORDER FOR HOSPICE. CLARIFIED LACTULOSE ORDER - RECEIVED NEW ORDER OF LACTULOSE 30GM Q8H.
[2019-10-08 15:05] LABS: C DIFFICILE TOXIN A&B AMP PROB NEGATIVE (NEGATIVE)
[2019-10-08] MEDS: FERROUS SULFATE 325 MG TAB PO SCH (16:05)
--- NOTE | 2019-10-08 19:00 | NUR ---
walking rounds complete, pt alert resp even and no c/o pain when asked, call light in reach.
--- NOTE | 2019-10-08 19:32 | NUR ---
PATIENT IN STABLE CONDITION WITH NO S/S OF RESPIRATORY DISTRESS. NO PAIN VOICED. TELEMETRY APPLIED. BED ALARM APPLIED; THREE RAILS RAISED. CALL LIGHT IS WITHIN REACH OF PATIENT- PATIENT INSTRUCTED TO CALL FOR ASSISTANCE NEEDED. BEDSIDE SHIFT REPORT GIVEN TO ONCOMING NURSE.
[2019-10-08] MEDS: ATORVASTATIN 20 MG TAB PO SCH (20:04)
[2019-10-08] MEDS: CEPHALEXIN MONOHYDRATE 250 MG CAP PO SCH (20:04)
[2019-10-08] MEDS: PANTOPRAZOLE SOD 40 MG TABEC PO SCH (20:04)
[2019-10-09] VITALS (7 sets, daily range): BP systolic 119–155; BP diastolic 57–68
--- NOTE | 2019-10-09 02:31 | NUR ---
pt asleep, resting comfortably, no distress noted call light in reach.
[2019-10-09] MEDS: LACTULOSE SYRUP 20 GM/30 ML UDC PO SCH ×2 (05:27→14:00)
[2019-10-09] MEDS: FUROSEMIDE 20 MG TAB PO SCH (05:27)
--- NOTE | 2019-10-09 07:15 | NUR ---
bedside rounding, complete , pt stable at shift change.
--- NOTE | 2019-10-09 07:25 | NUR ---
D/C summary Principal dx: Anasarca- diuretics Hepatic cirrhosis- lactulose Likely Hepatocellular carcinoma- supportive care Ascites- diuretics Secondary Dx: Portal hypertension- supportive Cholelithiasis Hypernatremia - f/u with diuretics KARAN- f/u with diuretics UTI- keflex Prop: REBECA jorge; evelio Dispo: hospice eval 10/08 supportive care; plans for SNF with hospice care; cancel vitals and SCD; keep comfortable until hospice starts; use ferrous sulfate; 10/09 cont care. Hospice d/c today to SNF d/c to hospice tenable/guarded f/u hospice team d/c.35mins Raul Talamantes MD, PhD.
[2019-10-09] MEDS ORDERED: FERROUS SULFAT325 MG PO (07:26)
[2019-10-09] MEDS ORDERED: KEFLEX500 MG PO (07:27)
[2019-10-09] MEDS: FERROUS SULFATE 325 MG TAB PO SCH (08:00)
[2019-10-09] MEDS ORDERED: ONDANSETRON HCL 4 MG ORAL DISINTEGRATING TAB PO PRN (08:30)
[2019-10-09] MEDS: DIVALPROEX SODIUM 250 MG TAB...DR PO SCH (09:00)
[2019-10-09] MEDS: METOPROLOL TARTRATE 25 MG TAB PO SCH (09:00)
[2019-10-09] MEDS: PANTOPRAZOLE SOD 40 MG TABEC PO SCH (09:00)
[2019-10-09] MEDS: CEPHALEXIN MONOHYDRATE 250 MG CAP PO SCH (09:00)
--- NOTE | 2019-10-09 10:53 | NUR ---
patient resting in bed, confused, no distress noted, denies any pain this time.
--- NOTE | 2019-10-09 12:55 | NUR ---
Patient was agitated gettong out of bed bed, stating that ineed to be up and walk, assisted her to recliner, at bed side this time, encouraged him to call nurse when he leave the room, call light in reach, continue monitoring
[2019-10-09] MEDS: TRAMADOL HCL 50 MG TAB PO PRN (15:55)
--- NOTE | 2019-10-09 16:30 | NUR ---
RECEIVED OOH DNR, PT ACCEPTED TO [facility]SP[facility].
--- NOTE | 2019-10-09 18:20 | NUR ---
Patient discharged to [facility] under Hospice, Report called to Charisse BULLOCK, Patient not in any distress, at bed side, EMS here to pick patient
== END 2019-10-09 18:18 | disposition hospice, inpatient (51) | DRG 436 ==
LOC: ER 11:04 → ERHOLD 13:29 → MED/SURG3 15:17
PROVIDERS: ADMIT Internal Medicine; ATTEND Internal Medicine
DX: C22.0 Liver cell carcinoma (principal); N39.0 Urinary tract infection, site not specified; N17.9 Acute kidney failure, unspecified; E87.0 Hyperosmolality and hypernatremia; K76.6 Portal hypertension; R18.8 Other ascites; K74.60 Unspecified cirrhosis of liver; K80.80 Other cholelithiasis without obstruction; R60.0 Localized edema
CPT/HCPCS: 36415; 70450; 71045; 74176; 80053; 81001; 82140; 82270; 82550; 82553; 82948; 83735; 84484; 85025; 85610; 85730; 87040; 87071; 87086; 87205; 87493; 93005; 99284; J2543; J7040